=== PATIENT | female | born 1985 | race Caucasian/White ===

== ENCOUNTER 2017-12-15 09:02 | Emergency (ER) | payer MEDICAID ==
[~2017-12-15] VITALS: Ht 157.5 cm; Wt 94.0 kg
[2017-12-15 09:05] VITALS: BP 143/98; PULSE 82; RESP 16; TEMP 98.5; O2SAT 98
--- NOTE | 2017-12-15 09:33 | PD ---
HPI Chief Complaint: Flank/Kidney Pain Time Seen by Provider: 09:27 Travel History International Travel<30 days: No Contact w/Intl Traveler<30days: No Traveled to known affect area: No History of Present Illness HPI The patient was seen and examined in the presence of the nurse. This patient woke up this morning with some left flank pain. She has history of kidney stones. She went to urgent care in a told her to come over here instead. She denies fever or injury. Symptom severity is moderate. No alleviating factors. No exacerbating factors. PFSH Past Medical History Anemia: Yes Anxiety: Yes Cardiovascular Problems: Yes ("heart murmur") Diminished Hearing: No Genitourinary: Yes (hx of uti) Kidney Stones: Yes Reproductive: Yes Immunizations Current: Yes ?: Not LMP: 2 weeks ago Menopausal: No : 2 Para: 1 Miscarriage: 1 : 0 Ovarian Cysts: Yes Past Surgical History Section: Yes (X 1) Gynecologic Surgery: Yes (C-SEC X 1) Social History Alcohol Use: No Tobacco Use: Yes Substance Use: No Allergies-Medications (Allergen,Severity, Reaction): Coded Allergies: omeprazole (Unverified Allergy, Intermediate, RASH, 12/15/17) Reported Meds & Prescriptions Reported Meds & Active Scripts Active No Active Prescriptions or Reported Medications Review of Systems General / Constitutional: No: Fever Eyes: No: Visual changes HENT: No: Headaches Cardiovascular: No: Chest Pain or Discomfort Respiratory: No: Shortness of Breath Gastrointestinal: No: Abdominal Pain Genitourinary: Positive: Flank Pain, No: Dysuria Musculoskeletal: No: Pain Skin: No Rash Neurologic: No: Weakness Psychiatric: No: Depression Endocrine: No: Polydipsia Hematologic/Lymphatic: No: Easy Bruising Physical Exam Narrative GENERAL: Well-nourished, well-developed patient with left flank pain . SKIN: Focused skin assessment reveals no rash and nodules. Skin is Warm and dry. HEAD: Atraumatic. Normocephalic. EYES: Pupils equal and round. No scleral icterus. No injection or drainage. ENT: No nasal bleeding or discharge. Mucous membranes pink and moist. NECK: Trachea midline. No JVD. CARDIOVASCULAR: Regular rate and rhythm. No murmur appreciated. RESPIRATORY: No accessory muscle use. Clear to auscultation. Breath sounds equal bilaterally. GASTROINTESTINAL: Abdomen soft, non-tender, nondistended. Hepatic and splenic margins not palpable. MUSCULOSKELETAL: No obvious deformities. No clubbing. No cyanosis. No edema. No midline tenderness to the back. No bruising or swelling. NEUROLOGICAL: Awake and alert. No obvious cranial nerve deficits. Motor grossly within normal limits. Normal speech. PSYCHIATRIC: Appropriate mood and affect; insight and judgment normal. Data Data Last Documented VS Vital Signs Date Time Temp Pulse Resp B/P (MAP) Pulse Ox O2 Delivery O2 Flow Rate FiO2 12/15/17 09:42 16 12/15/17 09:05 98.5 82 143/98 (113) 98 Orders Orders Urinalysis - C+S If Indicated (12/15/17 09:04) Ed Urine Pregnancytest Poc (12/15/17 09:04) Ct Abd/Pel W/O Iv Contrast (12/15/17 ) Labs Laboratory Tests Test 12/15/17 09:35 Urine Collection Type CLEAN CATCH Urine Color YELLOW Urine Turbidity CLEAR Urine pH 6.0 Urine Specific [place] LESS/EQUAL 1.005 Urine Protein NEG mg/dL Urine Glucose (UA) NEG mg/dL Urine Ketones NEG mg/dL Urine Occult Blood LARGE Urine Nitrite NEG Urine Bilirubin NEG Urine Urobilinogen 0.2 MG/DL Urine Leukocyte Esterase NEG Urine RBC 10-14 /hpf Urine Squamous Epithelial Cells 6-8 /hpf Urine Amorphous Sediment FEW Microscopic Urinalysis Comment CULT NOT INDICATED Urine Collection Time 0935 MDM Medical Decision Making Medical Screen Exam Complete: Yes Emergency Medical Condition: Yes Medical Record Reviewed: Yes Differential Diagnosis Kidney stone, sciatica, lumbar strain Narrative Course I have reviewed the patient's electronic medical record. Patient has history of kidney stones in the past. She was seen here for that before. Urinalysis shows a small amount of red blood cells but no infection CT of abdomen pelvis shows a 3 mm nonobstructing stone with no hydronephrosis. Otherwise negative. I reviewed the results with her. She stable for outpatient follow-up. She looks comfortable and asymptomatic Diagnosis Primary Impression: Acute left flank pain Additional Instructions: The patient was advised to follow up with their physician and return if they worsen. Med/Other Pt SpecificInfo: Other Scripts No Active Prescriptions or Reported Meds Disposition: 01 DISCHARGE HOME Condition: Stable Papi Pena MD Dec 15, 2017 09:33
[2017-12-15 09:47] LABS: BILIRUBIN, URINE NEG (NEG); BLOOD, URINE LARGE (NEG); GLUCOSE,URINE NEG (NEG); KETONE, URINE NEG (NEG); NITRITE,URINE NEG (NEG); URINE COLOR YELLOW (YELLW/STRAW); URINE LEUKOCYTE ESTERASE NEG (NEG)
[2017-12-15 10:10] LABS: AMORPHOUS SEDIMENT, URINE FEW
--- NOTE | 2017-12-15 10:16 | RADRPT ---
EXAM DATE: 12/15/2017 10:07 AM EDT AGE/SEX: 32 years / Female INDICATIONS: Left flank pain. CLINICAL DATA: This is the patient's initial encounter. Patient reports that signs and symptoms have been present for 1 day and indicates a pain score of 1/10. MEDICAL/SURGICAL HISTORY: Renal calculi. section. RADIATION DOSE: 19.97 CTDI (mGy) COMPARISON: No prior exams available for comparison. TECHNIQUE: Multiple contiguous axial images were obtained through the abdomen. Images were obtained using multiple row detector helical technique. Using automated exposure control and adjustment of the mA and/or kV according to patient size, radiation dose was kept as low as reasonably achievable to o btain optimal diagnostic quality images. DICOM format image data is available electronically for rev iew and comparison. FINDINGS: Lower Lungs: The visualized lower lungs are clear. Liver: The liver has a homogeneous density without space-occupying lesion. There is no dilation of th e biliary tree. Spleen: Homogeneous density without enlargement. Pancreas: Unremarkable without mass or calcification. Kidneys: Normal in size and shape. No evidence of mass or hydronephrosis. 3 mm nonobstructing calcul us lower pole left kidney. Adrenal Glands: Unremarkable. Aorta: The aorta and proximal iliac vessels are grossly unremarkable without aneurysmal dilation. Bowel/Mesentery: The bowel loops are grossly unremarkable. The cecum and sigmoid colon have a normal configuration. Normal appendix. Abdominal Wall: Intact. Retroperitoneum: No evidence of adenopathy in the retrocrural, para-aortic, or deep pelvic regions. Bladder: Contours are smooth. Reproductive Organs: No abnormal masses or calcifications seen. Inguinal: The inguinal region is unremarkable without evidence of adenopathy. Bony Structures: Unremarkable. CONCLUSION: 1. Nonobstructing lower pole left renal calculus. 2. Otherwise unremarkable CT examination of the abdomen/pelvis. Electronically signed by: Mckay Sibley MD 12/15/2017 10:14 AM EDT
== END 2017-12-15 11:34 | disposition home or self-care (01) ==
LOC: PHED 09:02
DX: R10.9 Unspecified abdominal pain (principal); Z87.442 Personal history of urinary calculi; Z72.0 Tobacco use
CPT/HCPCS: 74176; 81001; 84703

== ENCOUNTER 2017-12-17 06:35 | Emergency (ER) | payer MEDICAID ==
[~2017-12-17] VITALS: Ht 157.5 cm; Wt 94.5 kg
[2017-12-17 06:44] VITALS: BP 144/91; PULSE 85; RESP 18; TEMP 98; O2SAT 100
[2017-12-17] MEDS ORDERED: ONDANSETRON ODT 4 MG TAB ONE (07:05)
--- NOTE | 2017-12-17 07:10 | PD ---
HPI Chief Complaint: Flank/Kidney Pain Time Seen by Provider: 07:06 Travel History International Travel<30 days: No Contact w/Intl Traveler<30days: No Traveled to known affect area: No History of Present Illness HPI 32-year-old female came to the emergency room with history of lower back pain and left-sided flank pain. Patient says that she has been having it for past couple days. In fact she was in the emergency room 2 days ago for the exact same complaint. Patient says the pain got severe today and that is why she came back. She does have a primary care physician. Patient says pain is 9 out of 10 but is entered the room she was lying on the stretcher and appears to be comfortable. No aggravating or relieving factors identified. Patient says the pain feels like when she passed her kidney stone or during childbirth. The CAT scan that was done 2 days ago did not show any ureteral stones. She has been nauseous but no vomiting. Vital signs are stable. No radiation of the pain. PFSH Past Medical History Narrative Medical List of her past medical, surgical, social and family history is reviewed from the nursing note. Anemia: Yes Anxiety: Yes Depression: Yes Cardiovascular Problems: Yes ("heart murmur") Diminished Hearing: No Genitourinary: Yes (hx of uti) Kidney Stones: Yes Reproductive: Yes Immunizations Current: Yes Tetanus Vaccination: < 5 Years ?: Not Menopausal: No : 2 Para: 1 Miscarriage: 1 : 0 Ovarian Cysts: Yes Past Surgical History Section: Yes (X 1) Gynecologic Surgery: Yes (C-SEC X 1) Social History Alcohol Use: No Tobacco Use: No (quit 3 years ago) Substance Use: No Allergies-Medications (Allergen,Severity, Reaction): Coded Allergies: omeprazole (Unverified Allergy, Intermediate, RASH, 12/17/17) Comments List of her allergies reviewed from the nursing note Reported Meds & Prescriptions Reported Meds & Active Scripts Active Flexeril (Cyclobenzaprine HCl) 5 Mg Tab 5 Mg PO TID Ibuprofen 600 Mg Tab 600 Mg PO Q6H PRN Narrative Medication List of her home medications reviewed from the nursing Review of Systems Except as stated in HPI: all other systems reviewed are Neg Genitourinary: Positive: Flank Pain Musculoskeletal: Positive: Pain Physical Exam Narrative GENERAL: Awake, alert, no obvious distress SKIN: Focused skin assessment warm/dry. HEAD: Atraumatic. Normocephalic. EYES: Pupils equal and round. No scleral icterus. No injection or drainage. ENT: No nasal bleeding or discharge. Mucous membranes pink and moist. NECK: Trachea midline. No JVD. CARDIOVASCULAR: Regular rate and rhythm. No murmur appreciated. RESPIRATORY: No accessory muscle use. Clear to auscultation. Breath sounds equal bilaterally. GASTROINTESTINAL: Abdomen soft, non-tender, nondistended. Hepatic and splenic margins not palpable. MUSCULOSKELETAL: No obvious deformities. No clubbing. No cyanosis. No edema. NEUROLOGICAL: Awake and alert. No obvious cranial nerve deficits. Motor grossly within normal limits. Normal speech. PSYCHIATRIC: Appropriate mood and affect; insight and judgment normal. Data Data Last Documented VS Vital Signs Date Time Temp Pulse Resp B/P (MAP) Pulse Ox O2 Delivery O2 Flow Rate FiO2 12/17/17 08:07 80 18 130/81 (97) 98 Room Air 12/17/17 06:44 98.0 Orders Orders Ondansetron Odt (Zofran Odt) (12/17/17 07:05) Ed Urine Pregnancytest Poc (12/17/17 07:14) Acetamin-Hydrocod 325-5 Mg (Encinal 5-325 (12/17/17 07:15) Ketorolac Inj (Toradol Inj) (12/17/17 07:15) Orphenadrine Inj (Norflex Inj) (12/17/17 07:15) Ed Discharge Order (12/17/17 07:36) MDM Medical Decision Making Medical Screen Exam Complete: Yes Emergency Medical Condition: Yes Medical Record Reviewed: Yes Differential Diagnosis Musculoskeletal pain Narrative Course 7:33 AM patient had a CAT scan to rule out kidney stones 2 days ago as well as a UA. The UA showed some RBCs but the CAT scan was negative for any ureteral calculi. Patient had a negative urine test 2 days ago. Based on this and stable vital signs and the fact that she is rather young a have chose not to do any further testing. Patient is getting pain medication and muscle relaxation. I have asked her to follow-up with her primary care and may be further imaging like an MRI can be ordered by her primary care as an outpatient. Patient will be discharged after she gets her medications. Her drove her to the emergency room. Procedures EKG Prior to Arrival: No Diagnosis Primary Impression: Musculoskeletal pain Referrals: Primary Care Physician 2 days Additional Instructions: Please follow-up with your primary care physician especially if the pain persists in couple days. Apply warm compresses alternating with cold compress. If the pain is not alleviated with the medications given from the emergency room your primary care should order an MRI of the lower back as an outpatient. Med/Other Pt SpecificInfo: Prescription(s) given Scripts Cyclobenzaprine (Flexeril) 5 Mg Tab 5 MG PO TID for Muscle Spasm, #15 TAB 0 Refills Prov: Max Ponce MD 12/17/17 Ibuprofen (Ibuprofen) 600 Mg Tab 600 MG PO Q6H Y for Pain/Inflammation, #40 TAB 0 Refills Prov: Max Ponce MD 12/17/17 Disposition: 01 DISCHARGE HOME Condition: Stable Max Ponce MD Dec 17, 2017 07:10
[2017-12-17] MEDS ORDERED: KETOROLAC TROMETHAMINE 60 MG/2 ML (IM) VIAL IM ONE (07:15)
[2017-12-17] MEDS ORDERED: ORPHENADRINE INJ 60 MG/2 ML AMP IM ONE (07:15)
[2017-12-17] MEDS ORDERED: ACETAMINOPHEN/HYDROcodone 325 MG/5 MG TAB PO ONE (07:15)
[2017-12-17] MEDS ORDERED: CYCL5TAB PO (07:35)
[2017-12-17] MEDS ORDERED: IBUP-232 PO (07:35)
[2017-12-17 08:07] VITALS: BP 130/81; PULSE 80; RESP 18; O2SAT 98
== END 2017-12-17 08:07 | disposition home or self-care (01) ==
LOC: PHED 06:35
DX: M79.1 Myalgia (principal); R10.9 Unspecified abdominal pain; R11.0 Nausea; F41.8 Other specified anxiety disorders; Z87.442 Personal history of urinary calculi
CPT/HCPCS: 96372; 99283; J1885; J2360